=== PATIENT | female | born 1960 | race Caucasian/White ===

== ENCOUNTER 2019-11-24 12:57 | Outpatient (CLI) | payer MEDICARE, SELFPAY ==
--- NOTE | ~2019-11-24 | XR_ITS ---
XR chest 2V DATE: 11/24/2019 13:25 INDICATION: Cough. Emphysema. TECHNIQUE: PA and lateral views COMPARISON: 10/30/2016 two-view chest FINDINGS: Normal heart size. No hilar or mediastinal enlargement. No pulmonary infiltrate or consolid ation is evident. There is mild discoid atelectasis or scarring at both lung bases. The lungs otherwi se appear clear. No pleural effusion or pulmonary vascular congestion or pneumothorax. IMPRESSION: Mild discoid atelectasis or scarring at the lung bases; otherwise no active disease Reviewed, dictated and finalized at location [facility]. [employer] IMPRESSION: Mild discoid atelectasis or scarring at the lung bases; otherwise n o active disease
== END 2019-11-24 12:58 | disposition home or self-care (01) ==
DX: J43.9 Emphysema, unspecified (principal); R05 Cough; J98.11 Atelectasis
CPT/HCPCS: 71046

== ENCOUNTER 2019-12-21 07:49 | Outpatient (CLI) | payer MEDICARE, SELFPAY ==
--- NOTE | ~2019-12-21 | CT_ITS ---
EXAMINATION: CT chest w con DATE: 12/21/2019 08:41 INDICATION: Shortness of breath. COPD. TECHNIQUE: Computed tomography (CT) of the chest was performed with 75 cc Omnipaque 350 intravenous c ontrast. Automated exposure control and iterative reconstruction technique were employed. Exam dose: 242.30 mGy-cm total exam DLP. COMPARISON: 11/24/2019 PA and lateral chest FINDINGS: Normal heart size. No thoracic aortic aneurysm or dissection. No pericardial or pleural effusion. Normal size and homogeneous enhancement of the thyroid gland. No hilar or mediastinal mass lesion or lymphadenopathy. There are calcified right hilar nodes. Calcified middle lobe pulmonary granulomas. Mild bilateral apical scarring. Focal minimal groundglass infiltrate or scarring in the posterolateral left upper lobe (series 4 imag es 31, 32) Mild emphysematous changes. There is an approximately 6.2 cm upper pole right renal cyst. Calcified splenic granulomas. Small sliding hiatal hernia. No suspicious osteolytic or osteoblastic lesions are noted. IMPRESSION: Mild emphysema Old pulmonary and splenic granulomatous disease Minimal focal infiltrate or scarring in the posterior lateral left upper lobe Mild bilateral apical scarring Small sliding hiatal hernia Reviewed, dictated and finalized at [facility]. Reviewed, dictated and finalized at location [facility].
== END 2019-12-21 07:50 | disposition home or self-care (01) ==
DX: J44.9 Chronic obstructive pulmonary disease, unspecified (principal); R06.02 Shortness of breath; J43.9 Emphysema, unspecified; R91.8 Other nonspecific abnormal finding of lung field; K44.9 Diaphragmatic hernia without obstruction or gangrene
CPT/HCPCS: 71260; Q9967

== ENCOUNTER 2020-04-12 00:45 | Outpatient (CLI) | payer MEDICARE, SELFPAY ==
[2020-04-12 18:04] LABS: SARS-CoV-2 RNA PCR Negative
== END 2020-04-12 00:46 | disposition home or self-care (01) ==
LOC: ANHCOVIDDT 00:45
PROVIDERS: Visit Provider Internal Medicine Gastroenterology
DX: Z01.812 Encounter for preprocedural laboratory examination (principal); Z11.59 Encounter for screening for other viral diseases
CPT/HCPCS: 87635; C9803; U0003

== ENCOUNTER 2020-04-15 03:00 | Day surgery (SDC) | payer MEDICARE, SELFPAY ==
[2020-04-08 14:52] VITALS: BMI 33.2
[2020-04-15 08:31] VITALS: BP 149/91; PULSE 89; RESP 18; TEMP 36.9; O2SAT 98
[2020-04-15] MEDS: LACTATED RINGERS 1,000 ML 150 ML IV CONT (08:46)
--- NOTE | 2020-04-15 09:04 | WPDGICN ---
Assessment and Plan Assessment and plan (1) Diarrhea: Code(s): R19.7 - Diarrhea, unspecified Status: Acute Assessment and Plan: Persistent diarrhea for the last 4-5 months. Ongoing urgency. No response to empiric trial of antibiotics. Persistently negative stool cultures. Plan is for colonoscopy to evaluate more thoroughly. High-fiber diet is advised in the interim further recommendations will be given after endoscopy. GI Consult Note Consult date/time: 04/15/20 09:04 HPI: Juany Rai is a 59 year old female seen in evaluation at the request of Dr Radu Flores. Patient reports having significant diarrhea in November of 2019. She was seen at [facility] in treated empirically with antibiotics. Several cultures were obtained but no definitive pathologic diagnosis. She reports after 3 rounds of antibiotics these were ventrally discontinued. Patient denies any bleeding. She does continue to have urgency and frequent stools. Stools are described as mushy in soft. No blood is described. She has no abdominal pain she denies weight loss. Her family history is noncontributory. Her past history is significant most recent colonoscopy was done for screening purposes 5 years ago at [facility]. Past medical history is significant for heartburn, anxiety, asthma, Review of Systems Review of Systems: All systems reviewed & are unremarkable except as noted in HPI and below Meds Home Medications and Allergies Home Medications Medication Instructions Recorded Confirmed Type albuterol sulfate 2 puff INHALATION DAILY PRN 04/08/20 04/08/20 History alprazolam 0.5 mg PO DAILY PRN 04/08/20 04/08/20 History dexlansoprazole [Dexilant] 60 mg PO DAILY 04/08/20 04/08/20 History hydrocodone-acetaminophen 0.5 tablet PO DAILY PRN 04/08/20 04/08/20 History mometasone 2 spray INTRANASAL DAILY 04/08/20 04/08/20 History Allergies Allergy/AdvReac Type Severity Reaction Status Date / Time No Known Drug Allergies Allergy Unknown Verified 03/15/14 13:57 Vital Signs Vital Signs - 24 hr 04/15/20 08:31 Temperature 98.4 F Pulse Rate 89 Respiratory Rate 18 Blood Pressure 149/91 H Pulse Oximetry 98 Exam Narrative: Exam Narrative: physical exam reveals patient to be alert. Vital signs stable. HEENT exam unremarkable. She is anicteric. Lungs are clear to auscultation and percussion. Heart is without murmur or extra sounds. Abdominal exam bowel sounds are present soft nontender with no organomegaly. Digital external rectal exam normal.
--- NOTE | 2020-04-15 09:41 | WPDANESEPPF ---
Anes - Initial Pre Proc Eval Procedure: Operation Date: 04/15/20 09:30 Proposed Procedures p Colonoscopy - Edi Rodriguez MD Date/Time: 04/15/20 09:41 Surgeon: Edi Rodriguez MD Pre Op Diagnosis: diarrhea Patient Data Age: 59 Gender: F Height: 5 ft 3 in Weight: 85 kg Last Vital Signs Temp 98.4 F 04/15/20 08:31 Pulse 89 04/15/20 08:31 Resp 18 04/15/20 08:31 BP 149/91 H 04/15/20 08:31 Pulse Ox 98 04/15/20 08:31 Allergies Allergy/AdvReac Type Severity Reaction Status Date / Time No Known Drug Allergies Allergy Unknown Verified 03/15/14 13:57 Home Medications Medication Instructions Recorded Confirmed Type albuterol sulfate 2 puff INHALATION DAILY PRN 04/08/20 04/08/20 History alprazolam 0.5 mg PO DAILY PRN 04/08/20 04/08/20 History dexlansoprazole [Dexilant] 60 mg PO DAILY 04/08/20 04/08/20 History hydrocodone-acetaminophen 0.5 tablet PO DAILY PRN 04/08/20 04/08/20 History mometasone 2 spray INTRANASAL DAILY 04/08/20 04/08/20 History Patient hx anesthesia problems: none Family hx anesthesia problems: none [facility] [place] Past Medical History Medical History (Updated 04/15/20 @ 09:41 by Marco Diaz MD) Bronchitis Emphysema of lung GERD (gastroesophageal reflux disease) Rheumatoid arthritis Anes - Eval Final PreProcedure Day of Procedure 04/15/20 09:41 Patient weight: normal Heart: regular rate and rhythm Lungs: clear to auscultation Airway: Mallampati scale class II Neurological: alert and oriented Last oral intake: >/= 8 hours ASA classification: III Emergent: no Anesthetic plan: proceed Anesthesia type and monitoring: general GIVS and standard monitoring Informed Consent: The patient's anesthetic plan and its attendant risks and benefits were discussed with the patient/family/POA. Questions were solicited and answers provided to the satisfaction of the patient/family/POA.
[2020-04-15 10:00] VITALS: BP 149/91; PULSE 93; RESP 18; O2SAT 94
[2020-04-15 10:10] VITALS: BP 163/97; PULSE 83; RESP 18; O2SAT 97
[2020-04-15 10:20] VITALS: BP 164/96; PULSE 79; RESP 18; O2SAT 97
== END 2020-04-15 10:35 | disposition home or self-care (01) ==
PROVIDERS: PCP Internal Medicine; Visit Provider Internal Medicine Gastroenterology
PROC: 0DJD8ZZ Inspection of Lower Intestinal Tract, Via Natural or Artificial Opening Endoscopic (ICD-10-PCS; CPT 45378; principal; 2020-04-15 09:30)
DX: R19.7 Diarrhea, unspecified (principal); D12.4 Benign neoplasm of descending colon; K63.5 Polyp of colon; K57.30 Diverticulosis of large intestine without perforation or abscess without bleeding; K64.8 Other hemorrhoids; K21.9 Gastro-esophageal reflux disease without esophagitis; J43.9 Emphysema, unspecified; M06.9 Rheumatoid arthritis, unspecified
CPT/HCPCS: 45385; 88305; J2704; J7120

== ENCOUNTER 2023-07-07 14:38 | Outpatient (CLI) | payer MEDICARE, SELFPAY ==
--- NOTE | ~2023-07-07 | XR_ITS ---
XR abdomen/kub 1V DATE: 07/07/2023 15:01 INDICATION: Constipation, change in bowel habits. TECHNIQUE: 2 supine AP views COMPARISON: None FINDINGS: There is a moderately prominent amount of fecal material in the colon but no evidence of lor wel obstruction. The psoas shadows appear intact. No apparent visceromegaly is evident. No significant abnormal calcif ication is noted. Transitional lumbosacral vertebra. The lung bases appear clear. IMPRESSION: Moderately prominent amount of fecal material in the colon; no bowel obstruction Reviewed, dictated and finalized at [facility]. Reviewed, dictated and finalized at location [facility]. IMPRESSION: Moderately prominent amount of fecal material in the colon; no angie l obstruction
--- NOTE | ~2023-07-07 | XR_ITS ---
XR sacrum coccyx min 2V DATE: 07/07/2023 15:01 INDICATION: Left lower quadrant pain, positional. Rectal tenderness. TECHNIQUE: AP, angled AP and lateral views COMPARISON: None FINDINGS: There is a transitional first sacral vertebra with sacralization and pseudoarthrosis on the left, lumbarization on the right. No sacral fracture or coccygeal fracture or bone destruction is detected. Degenerative changes apophyseal joints at L5-S1 with grade 1 anterolisthesis at L5-S1. The sacroiliac joints and pubic symphysis are intact. IMPRESSION: Transitional first sacral vertebra Grade 1 anterolisthesis at L5-S1 due to degenerative change at the apophyseal joints Reviewed, dictated and finalized at location B. IMPRESSION: Transitional first sacral vertebra Grade 1 anterolisthesis at L5-S1 due to degenerative change at the apophyseal j oirobs
--- NOTE | ~2023-07-07 | XR_ITS ---
XR lumbar spine 2-3V DATE: 07/07/2023 15:01 INDICATION: Unilateral inguinal hernia TECHNIQUE: AP, lateral, coned lateral lumbosacral views COMPARISON: 07/22/2016 lumbar spine 11/24/2021 view chest FINDINGS: Hypoplastic ribs are again noted at L1. There is a transitional first sacral vertebra. There is prominent degenerative change at the apophyseal joints at L5-S1 with associated grade 1 ante rolisthesis at L5-S1 which appears stable or slightly increased since 07/22/2016. Lumbar and lumbosacral interspaces appear well preserved. There is minimal degenerative spurring of t he lumbar vertebral bodies. The included lower thoracic and lumbar pedicles are intact. No fracture o r bone destruction. The sacroiliac joints are intact. Osteopenia. IMPRESSION: Grade 1 anterolisthesis at L5-S1 due to degenerative change at the apophyseal joints Transitional lumbosacral vertebra Mild degenerative spurring of the lumbar spine Osteopenia Reviewed, dictated and finalized at location [facility].
== END 2023-07-07 14:39 | disposition home or self-care (01) ==
PROVIDERS: Visit Provider Nurse Practitioner
DX: K59.00 Constipation, unspecified (principal); R10.32 Left lower quadrant pain; K40.90 Unilateral inguinal hernia, without obstruction or gangrene, not specified as recurrent; M85.88 Other specified disorders of bone density and structure, other site
CPT/HCPCS: 72100; 72220; 74018

== ENCOUNTER 2024-06-19 06:43 | Outpatient (CLI) | payer MEDICARE, SELFPAY ==
--- NOTE | ~2024-06-19 | CT_ITS ---
EXAMINATION: CT abdomen pelvis wo con DATE: 06/19/2024 07:03 INDICATION: Changes in bowel habits TECHNIQUE: Computed tomography (CT) of the abdomen and pelvis was performed without intravenous contr ast. Automated exposure control and iterative reconstruction technique were employed. The dose-length product was 665.38 mGy-cm. COMPARISON: None FINDINGS: Lung bases are clear. Heart size is normal. No pericardial or pleural effusion. Small to moderate-siz ed sliding-type hiatal hernia. Splenic calcifications consistent with old granulomatous disease. Live r, gallbladder, pancreas and bilateral adrenal glands are normal. There multiple bilateral renal cyst s measuring up to 8.0 cm on the left and 7.7 cm on the right. Small fat-containing umbilical hernia. There are few scattered diverticula in the sigmoid and distal descending colon without adjacent layton rison to suggest diverticular colitis. Small bowel and appendix are normal. Bladder, anteverted uteru s and bilateral adnexa are unremarkable. No free intraperitoneal gas or fluid. No pathologically enla rged abdominal or pelvic lymphadenopathy. Bones are unremarkable. IMPRESSION: 1. No acute intra-abdominal/pelvic process. 2. Small to moderate-sized sliding-type hiatal hernia. 2. Mild diverticulosis. Reviewed, dictated and finalized at location B.
== END 2024-06-19 06:44 | disposition home or self-care (01) ==
DX: R19.4 Change in bowel habit (principal); K57.30 Diverticulosis of large intestine without perforation or abscess without bleeding; K44.9 Diaphragmatic hernia without obstruction or gangrene
CPT/HCPCS: 74176